=== PATIENT | male | born 2000 | race Caucasian/White ===

== ENCOUNTER 2021-09-15 20:04 | Emergency (ER) | payer OTHER, SELFPAY ==
[2021-09-15 20:25] VITALS: BP 126/87; PULSE 89; RESP 14; TEMP 36.4; O2SAT 98; BMI 20.9
--- NOTE | 2021-09-15 20:41 | CTR_ITS ---
PROCEDURE INFORMATION: Exam: CT Maxillofacial Without Contrast Exam date and time: 09/15/2021 8:54 PM Age: 20 years old Clinical indication: Injury or trauma; Fall; Blunt trauma (contusions or hematomas); Jaw; Right TECHNIQUE: Imaging protocol: Computed tomography images of the face without contrast. Radiation optimization: All CT scans at this facility use at least one of these dose optimization techniques: automated exposure control; mA and/or kV adjustment per patient size (includes targeted exams where dose is matched to clinical indication); or iterative reconstruction. COMPARISON: No relevant prior studies available. RADIATION DOSE METRICS: Total DLP (mGy-cm): 764.56 FINDINGS: Orbital cavities: Orbits are normal. Globes are unremarkable. Bones/joints: No acute fracture. Paranasal sinuses: Normal. No air-fluid levels. Soft tissues: Soft tissue hematoma/contusion over the anterior right mandibular body. CT/CT facial bones wo con* [id number] IMPRESSION: 1. No fracture identified. 2. Soft tissue contusion/hematoma over the anterior right mandible.
--- NOTE | 2021-09-15 20:41 | CTR_ITS ---
PROCEDURE INFORMATION: Exam: CT Head Without Contrast Exam date and time: 09/15/2021 8:57 PM Age: 20 years old Clinical indication: Injury or trauma; Blunt trauma (contusions or hematomas); Injury date: 09/15/2021; Injury details: Fall with loc TECHNIQUE: Imaging protocol: Computed tomography of the head without contrast. Radiation optimization: All CT scans at this facility use at least one of these dose optimization techniques: automated exposure control; mA and/or kV adjustment per patient size (includes targeted exams where dose is matched to clinical indication); or iterative reconstruction. COMPARISON: CT facial bones wo con* [id number] 09/15/2021 8:54 PM RADIATION DOSE METRICS: Total DLP (mGy-cm): 815.89 FINDINGS: Brain: Normal. No hemorrhage. Unremarkable white matter. No mass effect. Cerebral ventricles: No ventriculomegaly. Paranasal sinuses: Visualized sinuses are unremarkable. No fluid levels. Mastoid air cells: Visualized mastoid air cells are well aerated. Bones/joints: Unremarkable. No acute fracture. Soft tissues: Unremarkable. CT/CT head wo con* [id number] IMPRESSION: No acute intracranial abnormality.
[2021-09-15 20:45] VITALS: BP 115/75; PULSE 82; RESP 16; O2SAT 98
--- NOTE | 2021-09-15 20:58 | W.ED.GENADLT ---
HPI - General Adult General: Chief complaint: Fall Stated complaint: fell an hit face Time Seen by Provider: 09/15/21 20:38 History of Present Illness: Patient is a 20-year-old male who recently drink 4 shots of fireball earlier today presenting to the emergency room with concerns of facial pain and tooth ache. Patient tells me that he does not remember what happened but he fell forward and hit his face. Patient did not remember if he lost consciousness but reports upper incisor pain. Patient reports chipped teeth and jaw pain. Would like to be evaluated for that. Patient denies any associated chest pain, shortness or palpitation or lightheadedness prior to the episode of fall. Patient has no other complaints of pain elsewhere. Patient is AOx3 answering all questions currently. Onset:2 hrs ago Duration:once Location:home Severity:moderate Associated symptoms: Deny chest pain, dyspnea, nausea, rash, palpitations or vomiting Review of Systems Const: Denies: fever(s) or chills Eyes: Denies: change in vision ENMT: Reports: other (+teeth pain and jaw pain); Denies: mouth pain Card: Denies: chest pain or palpitations Resp: Denies: dyspnea or non-productive cough GI: Denies: abdominal pain, nausea, vomiting or diarrhea : Denies: dysuria Musc: Denies: extremity pain Skin/Breast: Denies: rash or new lesions Neuro: Denies: weakness in extremities Psych: Reports: other (Normal mood) Adams/Lymph: Denies: easy bruising PFSH ED PFSH: Medical History (Updated 09/15/21 @ 21:40 by Maxine Vegas MD) No pertinent past medical history Social History (Updated 09/15/21 @ 21:04 by Maxine Vegas MD) Smoking and tobacco status: never smoked Alcohol intake: current Substance/Drug Use: never Physical Exam Const: COMMON NORMALS: alert HENMT: COMMON NORMALS: atraumatic HEAD & SCALP: atraumatic MOUTH: moist mucous membranes not abnormal OTHER: No trismus, jaw movement intact bilaterally, mild right mandibular ramus tenderness +avina class II tooth 8/9 fracture Eye: COMMON NORMALS: EOMs intact bilaterally and conjunctivae normal CONJUNCTIVA: Yes conjunctivae normal Neck/C-Spine: COMMON NORMALS: full ROM and supple Resp: COMMON NORMALS: normal respiratory effort and clear to auscultation bilaterally AUSCULTATION: clear to auscultation bilaterally Cardio: COMMON NORMALS: regular rate RATE: regular rate GI: COMMON NORMALS: Soft to palpation and non-tender PALPATION: Yes Soft to palpation Extremity: COMMON NORMALS: full ROM Neuro: SENSORIUM/ORIENTATION: Yes alert MOTOR EXAM: No Abnormal motor strength present and Other motor observations present (no focal motor deficits) Psych: COMMON NORMALS: speech normal SPEECH: Yes normal speech MOOD & AFFECT: Yes euthymic mood Course Vital Signs: Vital signs: Vital Signs Temperature 98.5 F 09/15/21 21:12 Pulse Rate 77 09/15/21 21:47 Respiratory Rate 16 09/15/21 21:47 Blood Pressure 132/83 09/15/21 21:47 Pulse Oximetry 93 09/15/21 21:47 MDM - General Adult Medical Decision Making 20-year-old male presenting to the emergency room for concerns of jaw pain and chipped teeth after face for fall. On physical exam, patient has Avina class II chip teeth #8 and 9. No jaw malocclusion. CT face negative for any acute findings. CT head negative for brain bleed. Patient received zinc oxide onto the chipped tooth. Patient instructed follow-up with a dentist. I have given patient follow up with our geriatric case manager to be seen by our outpatient dentistry for evaluation of chipped teeth. Patient aware of a call from our geriatric case manager to schedule for appointment(s) and verbalizes understanding of the importance of following up. EKG did not show any signs of Brugada, HOCM, QT prolongation, WPW, epilson wave, or other acute pathologies Rx tylenol PRN pain Disposition: Discharge. Patient counseled regarding diagnostic impression, treatment plan. Patient given ED strict return precautions to return for continuation, worsening, or development of new symptoms. Instructed to f/u w/ PCP and dentistry regarding symptoms today. Patient verbalized understanding. Lab Data Radiology Impressions Face CT 09/15/21 20:41 IMPRESSION: 1. No fracture identified. 2. Soft tissue contusion/hematoma over the anterior right mandible. Head CT 09/15/21 20:41 IMPRESSION: No acute intracranial abnormality. Discharge Plan Discharge Patient Disposition: Home Clinical Impression: Fall, Pain in tooth Condition: Stable Prescriptions: New acetaminophen 500 mg tablet 500 mg PO Q6H PRN (Reason: pain) 5 Days Qty: 20 0RF Discharge Orders: Discharge ED (Routine); Ordered 09/15/21 Ordered By: Maxine Vegas Discharge Diet: Advance as tolerated Discharge Activity: Increase activity as tolerated Patient Instructions: Concussion (ED), Fall Prevention (ED) Activity Restrictions/Additional Instructions: Come back to the emergency room if your symptoms worsen, if any nausea vomiting, focal pain, or any new concerning complaints. Our geriatric case manager will have you follow-up with dentistry in the next few days. You would be expected to have a phone call with our geriatric case manager who will put you on the schedule. You can expect a call from us in the next 2-3 days. If you don't hear from us, call us back in the emergency room at [phone]. Coding Level of Care Code ED Social Services Analyst for Traci Fwedgardo Exam Comprehensive
[2021-09-15] MEDS: zinc oxide oint 30 gm 1 APPLIC TOPICAL (21:11)
[2021-09-15 21:12] VITALS: BP 121/79; PULSE 97; RESP 16; TEMP 36.9; O2SAT 98
[2021-09-15 21:47] VITALS: BP 132/83; PULSE 77; RESP 16; O2SAT 93
--- NOTE | 2021-09-15 21:48 | PC.NURSE ---
Patient has scratches on chest and abdomen, states he had a skateboarding accident. He denies suicidal or homicidal ideation. Denies desire to self harm.
[2021-09-15 22:35] VITALS: BP 133/83; PULSE 85; RESP 20; O2SAT 98
== END 2021-09-15 22:36 | disposition home or self-care (01) ==
PROVIDERS: Emergency Provider Emergency Medicine
DX: K08.89 Other specified disorders of teeth and supporting structures (principal); W19.XXXA Unspecified fall, initial encounter
CPT/HCPCS: 70450; 70486; 99283